=== PATIENT | female | born 1980 | race African-American/Black ===

== ENCOUNTER 2020-05-05 16:48 | Emergency (ER) | payer OTHER, SELFPAY ==
--- NOTE | 2020-05-05 16:53 | ECG_ITS ---
Measurements Intervals [place] Rate: 88 P: 48 GA: 136 QRS: 21 QRSD: 78 T: 32 QT: 365 QTc: 443 Interpretive Statements SINUS RHYTHM EARLY PRECORDIAL R/S TRANSITION BASELINE ARTIFACT- II, III, AVF BORDERLINE ECG Electronically Signed On 05-06-2020 6:55:53 DATABASE PROGRAMMER ANALYST by Major Ly D.O.
[2020-05-05 17:02] VITALS: BP 144/84; PULSE 86; RESP 20; TEMP 36.9; O2SAT 100
[2020-05-05 17:04] VITALS: BP 144/84; PULSE 86; RESP 20; TEMP 36.9; O2SAT 100
--- NOTE | 2020-05-05 17:09 | ED.GENADULT ---
HPI - General Adult General Chief complaint: Unspecified Stated complaint: chest palpitation Time Seen by Provider: 05/05/20 16:55 Source: patient and RN notes reviewed Mode of arrival: ambulatory Limitations: no limitations History of Present Illness HPI narrative: Patient presents today complaining of feelings of palpitations and heart racing that began 10 mins prior to arrival while cooking at home. States that she sought care today to have her blood pressure and heart rate checked, and you guys are right around the corner from my house. Associated symptoms include: feeling shaky with chills, which have improved since arrival. She also states that she feels that she has been taking deeper breaths, but denies shortness of breath. Patient is unsure if these symptoms are due to a panic attack or not, although she has never been diagnosed with panic attacks. Denies nausea, vomiting, abdominal pain. No history of heart, lung, or thyroid problems. No recent illness. MD complaint: palpitations Related Data Allergies Allergy/AdvReac Type Severity Reaction Status Date / Time No Known Allergies Allergy Unknown Verified 05/05/20 17:03 Review of Systems Review of Systems: Narrative: CONSTITUTIONAL: Denies body aches, fever, or sweats. + Chills EYES: Denies visual changes, redness, or discharge. ENT: Denies rhinorrhea, congestion, sore throat, or otalgia. CARDIOVASCULAR: Denies chest pain, or edema.+ Palpitations RESPIRATORY: Denies cough or dyspnea. GASTROINTESTINAL: Denies abdominal pain, nausea, vomiting, or diarrhea. GENITOURINARY: Denies dysuria or hematuria. SKIN: Denies rash, itching, or wounds. MUSCULOSKELETAL: Denies back pain, joint pain, or myalgia.+ Shakiness NEUROLOGIC: Denies headache, numbness, tingling, or weakness. PSYCH: Denies depression. +anxiety PMFSH Social History Social History Gender identity (if verbalized by the patient): Female Comments At time of signature, I have reviewed and agree with nursing past medical, surgical, social and family history unless otherwise noted. Please see nursing chart for further information. There is no relevant family history pertinent to the presenting complaint Exam Narrative: Exam Narrative: GENERAL: Well-appearing, well-nourished, and in no acute distress. HEAD: Normocephalic, atraumatic. EYES: EOMI. No redness or drainage. Conjunctivae normal. ENT: Mucous membranes pink and moist. NECK: Normal AROM. Supple. No lymphadenopathy. CHEST: No respiratory distress. Clear to auscultation. HEART: Regular rate and rhythm. No murmur appreciated. Normal peripheral pulses. Auscultated heart and palpated pulses when patient states she was experiencing palpitations and none were appreciated. ABDOMEN: Soft, nontender, nondistended, normal active bowel sounds. MUSCULOSKELETAL: No bony tenderness. EXTREMITIES: Normal range of motion. No edema. Foot push and pulls equal and strong. SKIN: Warm, dry, no rash. Capillary refill normal. Normal skin turgor. NEURO: No focal deficits. Alert and oriented x3. Gait steady. PSYCH: Normal affect. No signs of depression or anxiety. Course Course Emergency Course: 1723- Patient left in quite room for 15 mins and states she is feeling better and symptoms are resolving. At this time, I do not feel it indicated to send her to the ER. She agrees with plan to discharge home and will go immediately to the ER if she develops any additional symptoms. Will follow up with her PCP if symptom return. Vital Signs Vital signs: Vital Signs Temperature 98.4 F 05/05/20 17:02 Pulse Rate 86 05/05/20 17:02 Respiratory Rate 20 05/05/20 17:02 Blood Pressure 144/84 H 05/05/20 17:02 Pulse Oximetry 100 05/05/20 17:02 Temperature 98.4 F 05/05/20 17:04 Pulse Rate 86 05/05/20 17:04 Respiratory Rate 20 05/05/20 17:04 Blood Pressure 144/84 H 05/05/20 17:04 Pulse Oximetry
== END 2020-05-05 17:31 | disposition home or self-care (01) ==
PROVIDERS: Emergency Provider Nurse Practitioner; PCP Internal Medicine
DX: R00.2 Palpitations (principal); F41.9 Anxiety disorder, unspecified
CPT/HCPCS: 93005; 99213; G0463

== ENCOUNTER 2021-04-07 09:37 | Emergency (ER) | payer OTHER, SELFPAY ==
[2021-04-07 09:50] VITALS: BP 143/94; PULSE 81; RESP 16; TEMP 36.5; O2SAT 98
--- NOTE | 2021-04-07 09:55 | ED.URI ---
HPI - URI/Sore Throat General Chief Complaint: Upper Respiratory Infection Stated Complaint: Sore throat Time Seen by Provider: 04/07/21 09:56 Source: patient and RN notes reviewed Mode of arrival: ambulatory Limitations: no limitations History of Present Illness HPI Narrative: 41-year-old female presents to the [facility] with complaints of a sore throat for a couple of weeks. Had seen primary care provider who prescribed promethazine with codeine for her cough but states it has not made her throat any better. Has been running 99 fevers, no other symptoms. Denies chest pain, abdominal pain, no shortness of breath, nausea, vomiting. Patient denies any past medical or surgical history MD elicited complaint: cough and sore throat Related Data Allergies Allergy/AdvReac Type Severity Reaction Status Date / Time No Known Allergies Allergy Unknown Verified 04/07/21 10:07 Review of Systems Review of Systems: All systems reviewed & are unremarkable except as noted in HPI and below Constitutional: Constitutional: Reports as per HPI, Denies chills and Reports fever(s) (99) Eyes: Eyes: Reports no additional eye complaints ENT: Reports as per HPI and Reports sore throat Cardiovascular: Cardiovascular: Reports no additional cardiovascular complaints, Denies chest pain and Denies radiating jaw, neck or arm pain Respiratory: Respiratory: Reports no additional respiratory complaints, Denies cough, Denies dyspnea and Denies wheezing Gastrointestinal: Gastrointestinal: Reports no additional gastrointestinal complaints, Denies abdominal pain, Denies nausea and Denies vomiting Genitourinary: Genitourinary: Reports no additional female genitourinary complaints Musculoskeletal: Musculoskeletal: Reports no additional musculoskeletal complaints Integumentary/Breasts: Skin/Breast: Reports system reviewed and no additional complaints, except as docu Neurologic: Reports system reviewed and no additional complaints, except as documented Psychiatric: Psychiatric: Reports no additional psychiatric complaints Allergic/Immunologic: Allergic/Immunologic: Reports no additional allergic/immunologic complaints PMFSH Past Medical History Medical History Patient denies significant medical history Surgical History Surgical History (Updated 04/07/21 @ 13:11 by Aisha Ortega) No significant past surgical history Social History Social History Gender identity (if verbalized by the patient): Female Comments At the time of my signature, I reviewed and agree with the nursing past medical, surgical, social, and family history. There is no relevant family history pertinent to the patient complaint. Exam Const: General: healthy appearing, no acute distress and alert Nutritional Appearance: well nourished Orientation/consciousness: patient oriented x3 Limitations: no limitations HENMT: Head: normal to inspection Ears: external ears normal, TM's normal bilaterally, EAC's normal and other (Hoarse voice) Face and sinus: normal facial exam Throat: uvula midline and abnormal tonsil bilateral erythema and hypertrophy Eyes: Conjunctivae: conjunctivae normal Pupils: Equal, round and reactive pupils present Neck: Neck: normal visual inspection and lymphadenopathy bilateral submandibular soft and tender Chest: Chest palpation & inspection: normal inspection of the chest Resp: Effort & Inspection: normal respiratory effort and no use of accessory muscles Auscultation: clear to auscultation bilaterally, no crackles, no rales, no rhonchi and no wheezes Cardio: Rate: regular rate Rhythm: regular rhythm Back/Spine/Pelvis: Back: no CVA tenderness Skin: General skin exam: normal color Rashes: no rashes Wounds: no wounds Neuro: General: patient oriented x3, moves all extremities, no meningeal signs and no focal motor deficits Speech: normal speech Gai
== END 2021-04-07 10:20 | disposition home or self-care (01) ==
PROVIDERS: Emergency Provider Nurse Practitioner
DX: J02.0 Streptococcal pharyngitis (principal)
CPT/HCPCS: 87880; 99213; G0463

== ENCOUNTER 2024-01-28 08:47 | Emergency (ER) | payer BC, SELFPAY ==
[2024-01-28 09:00] VITALS: BP 138/92; PULSE 74; RESP 16; TEMP 36.9; O2SAT 100
--- NOTE | 2024-01-28 09:38 | ED.EYEPROB ---
HPI - Eye Problem General Chief complaint: Eye Problems Stated complaint: Eyes Irritation Time Seen by Provider: 01/28/24 09:35 Source: patient, RN notes reviewed and old records reviewed Mode of arrival: ambulatory Limitations: no limitations History of Present Illness HPI Narrative: Patient presents with complaints of right eye pain and excessive tearing, photophobia for 3 days. She cannot recall any injury or trauma. She denies any purulent drainage. She denies any visual disturbance. The eye is red. She voices no other concerns or complaints at this time. She has been taking ofloxacin drops for her symptoms without relief Related Data Allergies Allergy/AdvReac Type Severity Reaction Status Date / Time No Known Allergies Allergy Unknown Verified 04/07/21 10:07 Review of Systems Review of Systems: All systems reviewed & are unremarkable except as noted in HPI and below Constitutional: Constitutional: Reports no additional constitutional complaints Eyes: Eyes: Reports as per HPI and Reports no additional eye complaints ENT: Reports system reviewed and no additional complaints, except as documented Cardiovascular: Cardiovascular: Reports no additional cardiovascular complaints Respiratory: Respiratory: Reports no additional respiratory complaints Gastrointestinal: Gastrointestinal: Reports no additional gastrointestinal complaints [facility] Past Medical History Medical History Patient denies significant medical history Surgical History Surgical History No significant past surgical history Social History Social History Gender identity (if verbalized by the patient): Female Comments At the time of my signature, I reviewed and agree with the nursing past medical, surgical, social, and family history. There is no relevant family history pertinent to the patient complaint. Exam Const: General: cooperative, no acute distress, alert and awake Orientation/consciousness: oriented to person, oriented to place and oriented to time HENMT: Head: normal to inspection Eyes: Alignment and Position: alignment normal Eyelids: eyelids normal Conjunctivae: conjunctival abnormality right conjunctival injection diffuse Sclera: scleral abnormality right scleral injection diffuse Cornea: corneas abnormal on the right fluorescein used and abrasion linear and at the following clock position (12) and fluorescein used Pupils: Equal, round and reactive pupils present EOM: EOMs intact bilaterally Direct Ophthalmoscopy: photophobia Other: No foreign body noted Resp: Effort & Inspection: normal respiratory effort and able to speak in complete sentences Auscultation: clear to auscultation bilaterally, no crackles, no rales, no rhonchi and no wheezes Cardio: Palpation: normal PMI Rate: regular rate Rhythm: regular rhythm Heart sounds: S1 normal heart sound present and S2 normal heart sound present Neuro: General: oriented to person, oriented to place and oriented to time Cranial nerves: Yes CN's II-XII intact bilaterally Psych: Appearance: grossly normal Thought process: Normal thought process present Insight: Good insight present (Psych) Judgement: Good judgement present (Psych) Course Course Level of Care: Express Care Visit Vital Signs Vital signs: Vital Signs Temperature 98.4 F 01/28/24 09:00 Pulse Rate 74 01/28/24 09:00 Respiratory Rate 16 01/28/24 09:00 Blood Pressure 138/92 H 01/28/24 09:00 Pulse Oximetry 100 01/28/24 09:00 Oxygen Delivery Room Air 01/28/24 09:00 Temperature 98.4 F 01/28/24 09:00 Pulse Rate 74 01/28/24 09:00 Respiratory Rate 16 01/28/24 09:00 Blood Pressure 138/92 H 01/28/24 09:00 Pulse Oximetry 100 01/28/24 09:00 Oxygen Delivery Room Air 01/28/24 09:00 Reviewed MDM - Eye Problem
== END 2024-01-28 10:04 | disposition home or self-care (01) ==
PROVIDERS: Emergency Provider Nurse Practitioner Family
DX: S05.01XA Injury of conjunctiva and corneal abrasion without foreign body, right eye, initial encounter (principal); X58.XXXA Exposure to other specified factors, initial encounter
CPT/HCPCS: 99213; A9270; G0463